=== PATIENT | male | born 1970 | race Caucasian/White ===

== ENCOUNTER → 2018-04-12 | Outpatient (CLI) | payer BC ==
--- NOTE | 2018-04-12 12:47 | REP ---
Hepatobiliary scan and gallbladder ejection fraction: History: Right upper quadrant abdominal tenderness. Technique: 6.6 mCi of technetium-99m mebrofenin was injected and sequential anterior images are acquired. 65 minutes after the mebrofenin injection, the patient consumed 8 ounces Ensure and an additional 60 minutes of imaging was acquired. Regions of interest are plotted around the gallbladder. Findings: The initial hepatocellular parenchymal uptake phase is normal and homogeneous. Intra- and extra-hepatic bile ducts and duodenum are labeled by the 110 -minute image. The gallbladder is first labeled on the 15 -minute image. There is normal washout from the liver parenchyma into the gallbladder and small intestine on subsequent images. The gallbladder ejection fraction is 100 %. Values greater than 35 % are considered normal with this technique. Impression: Normal hepatobiliary scan and normal gallbladder ejection fraction. Electronically Signed by Edwin Cheung MD 04/12/2018 12:39 P
== END ==
LOC: M RAD 09:01
PROVIDERS: ATTEND Nurse Practitioner Family
DX: R10.811 Right upper quadrant abdominal tenderness (principal)
CPT/HCPCS: 78227; A9537; J2805